=== PATIENT | male | born 1995 | race Two or more races ===

== ENCOUNTER 2022-05-19 10:34 | Emergency (ER) | payer OTHER ==
[~2022-05-19] VITALS: Ht 170.2 cm; Wt 66.2 kg
== END 2022-05-19 14:25 | disposition home or self-care (01) ==
LOC: ER 10:34
DX: S92.501A Displaced unspecified fracture of right lesser toe(s), initial encounter for closed fracture (principal); M89.8X7 Other specified disorders of bone, ankle and foot; W20.1XXA Struck by object due to collapse of building, initial encounter; Y93.9 Activity, unspecified; Y92.9 Unspecified place or not applicable